=== PATIENT | female | born 1945 | race Two or more races ===

== ENCOUNTER → 2017-07-24 | Outpatient (CLI) | payer OTHER ==
[~2017-07-24] VITALS: Ht 152.4 cm; Wt 87.1 kg
[~2017-07-24] MED LIST: ALPHAGAN P5 M1; BIAXIN500 MG; CATAFLAM50 MG PO; GILTUSS LIQUID237 M1; LEVO-T25 MCG; LOPERAMIDE2 MG; MUPIROCIN22 GM TOP; SEPTRA DS PO
== END | disposition home or self-care (01) ==
LOC: PPHC 12:45
DX: B34.9 Viral infection, unspecified (principal); Z01.89 Encounter for other specified special examinations

== ENCOUNTER 2018-02-10 12:53 | Outpatient (CLI) | payer OTHER | END 2018-02-10 13:19 | disposition home or self-care (01) | LOC: SONOGRAMA 12:53 | DX: M25.561 Pain in right knee (principal) ==

== ENCOUNTER → 2018-07-01 | Outpatient (CLI) | payer OTHER | END | disposition home or self-care (01) | LOC: WOUND MED 09:21 | DX: L97.312 Non-pressure chronic ulcer of right ankle with fat layer exposed (principal); I87.2 Venous insufficiency (chronic) (peripheral) | CPT/HCPCS: A4554; A4930; A6216; G0463 ==

== ENCOUNTER → 2018-07-08 | Outpatient (CLI) | payer OTHER | END | disposition home or self-care (01) | LOC: WOUND MED 09:45 | DX: L97.312 Non-pressure chronic ulcer of right ankle with fat layer exposed (principal); I87.2 Venous insufficiency (chronic) (peripheral) | CPT/HCPCS: G0463; A4554; A4930; A6216; A6266 ==

== ENCOUNTER → 2018-07-08 | Outpatient (CLI) | payer OTHER | END | disposition home or self-care (01) | LOC: NUCLEAR 11:00 | DX: I73.9 Peripheral vascular disease, unspecified (principal) ==

== ENCOUNTER → 2018-07-15 | Outpatient (CLI) | payer OTHER | END | disposition home or self-care (01) | LOC: WOUND MED 08:19 | DX: L97.312 Non-pressure chronic ulcer of right ankle with fat layer exposed (principal); I87.2 Venous insufficiency (chronic) (peripheral) | CPT/HCPCS: G0463; A4554; A4930; A6196; A6216; A6219 ==

== ENCOUNTER → 2018-07-15 | Outpatient (CLI) | payer OTHER | END | disposition home or self-care (01) | LOC: NUCLEAR 11:00 | DX: I73.9 Peripheral vascular disease, unspecified (principal); I87.2 Venous insufficiency (chronic) (peripheral) ==

== ENCOUNTER → 2018-07-22 | Outpatient (CLI) | payer OTHER | END | disposition home or self-care (01) | LOC: WOUND MED 07:58 | DX: L97.312 Non-pressure chronic ulcer of right ankle with fat layer exposed (principal); I87.2 Venous insufficiency (chronic) (peripheral) | CPT/HCPCS: G0463; A4554; A4930; A6216; A6219 ==

== ENCOUNTER → 2018-07-29 | Outpatient (CLI) | payer OTHER | END | disposition home or self-care (01) | LOC: WOUND MED 08:22 | DX: L97.312 Non-pressure chronic ulcer of right ankle with fat layer exposed (principal); I87.2 Venous insufficiency (chronic) (peripheral) | CPT/HCPCS: 97597; A4554; A4930; A6216; A6219 ==

== ENCOUNTER → 2018-08-05 | Outpatient (CLI) | payer OTHER | END | disposition home or self-care (01) | LOC: WOUND MED 08:44 | DX: L97.312 Non-pressure chronic ulcer of right ankle with fat layer exposed (principal); I87.2 Venous insufficiency (chronic) (peripheral) | CPT/HCPCS: 97597; A4554; A4930; A6216; A6219 ==

== ENCOUNTER → 2018-08-12 | Outpatient (CLI) | payer OTHER | END | disposition home or self-care (01) | LOC: WOUND MED 09:59 | DX: L97.312 Non-pressure chronic ulcer of right ankle with fat layer exposed (principal); I87.2 Venous insufficiency (chronic) (peripheral) | CPT/HCPCS: G0463; A4554; A4930; A6216 ==

== ENCOUNTER 2019-07-17 07:26 | Outpatient (CLI) | payer OTHER | END 2019-07-17 07:39 | disposition home or self-care (01) | LOC: LAB 07:26 | DX: M17.0 Bilateral primary osteoarthritis of knee (principal); Z76.89 Persons encountering health services in other specified circumstances; M79.651 Pain in right thigh; M79.604 Pain in right leg; D64.89 Other specified anemias; E88.89 Other specified metabolic disorders; D68.8 Other specified coagulation defects; Z22.322 Carrier or suspected carrier of Methicillin resistant Staphylococcus aureus; N39.0 Urinary tract infection, site not specified ==

== ENCOUNTER → 2019-08-02 07:50 | Outpatient (CLI) | payer OTHER ==
[~2019-08-02 07:50] MED LIST changes: +ATORVASTATIN CA10 MG PO; +DORZOLAMIDE-TIM10 ML OPHT; -LEVO-T25 MCG; +LEVO-T25 MCG PO
== END | disposition home or self-care (01) ==
LOC: LAB 07:50
DX: N39.0 Urinary tract infection, site not specified (principal)

== ENCOUNTER 2019-08-06 11:46 | Inpatient (IN) | payer OTHER ==
[~2019-08-06] VITALS: Ht 172.7 cm; Wt 88.0 kg
== END 2019-08-12 10:45 | disposition home or self-care (01) | DRG 470 ==
LOC: O/R 08-09 08:44 → SURG 08-09 11:18 → O/R 08-09 11:18 → SURG 08-09 19:24
PROVIDERS: ADMIT Orthopaedic Surgery
PROC: 0SRC0J9 Replacement of Right Knee Joint with Synthetic Substitute, Cemented, Open Approach (ICD-10-PCS; principal; 2019-08-09 15:00)
DX: M17.11 Unilateral primary osteoarthritis, right knee (principal); M46.28 Osteomyelitis of vertebra, sacral and sacrococcygeal region; E03.8 Other specified hypothyroidism

== ENCOUNTER 2019-08-18 15:05 | Outpatient (CLI) | payer OTHER | END 2019-08-18 16:00 | disposition home or self-care (01) | LOC: NUCLEAR 15:05 | DX: I87.2 Venous insufficiency (chronic) (peripheral) (principal); L03.125 Acute lymphangitis of right lower limb ==

== ENCOUNTER 2019-08-18 15:08 | Outpatient (CLI) | payer OTHER | END 2019-08-18 18:00 | disposition home or self-care (01) | LOC: LAB 15:08 | DX: D64.89 Other specified anemias (principal); M06.4 Inflammatory polyarthropathy ==

== ENCOUNTER 2019-08-25 07:15 | Outpatient (CLI) | payer OTHER | END 2019-08-25 07:21 | disposition home or self-care (01) | LOC: LAB 07:15 | DX: D64.89 Other specified anemias (principal); M06.4 Inflammatory polyarthropathy ==

== ENCOUNTER → 2019-09-07 | Outpatient (CLI) | payer OTHER | END | disposition home or self-care (01) | LOC: LAB 07:04 | DX: D64.89 Other specified anemias (principal); E88.89 Other specified metabolic disorders; D68.8 Other specified coagulation defects; N39.0 Urinary tract infection, site not specified; M06.4 Inflammatory polyarthropathy ==

== ENCOUNTER 2020-09-19 08:13 | Outpatient (CLI) | payer OTHER | END 2020-09-19 08:27 | disposition home or self-care (01) | LOC: MAMO-SONO 08:13 | PROVIDERS: ATTEND Internal Medicine | DX: Z12.31 Encounter for screening mammogram for malignant neoplasm of breast (principal); N63.0 Unspecified lump in unspecified breast ==

== ENCOUNTER 2021-10-02 10:55 | Outpatient (CLI) | payer OTHER | END 2021-10-02 11:08 | disposition home or self-care (01) | LOC: MAMO-SONO 10:55 | PROVIDERS: ATTEND Obstetrics & Gynecology | DX: Z12.31 Encounter for screening mammogram for malignant neoplasm of breast (principal); N60.19 Diffuse cystic mastopathy of unspecified breast ==

== ENCOUNTER 2022-12-23 13:21 | Outpatient (CLI) | payer OTHER | END 2022-12-23 13:38 | disposition home or self-care (01) | LOC: MAMO-SONO 13:21 | DX: Z12.31 Encounter for screening mammogram for malignant neoplasm of breast (principal); Z12.39 Encounter for other screening for malignant neoplasm of breast; N63.0 Unspecified lump in unspecified breast ==

== ENCOUNTER 2023-12-29 10:00 | Outpatient (CLI) | payer OTHER | END 2023-12-29 10:10 | disposition home or self-care (01) | LOC: MAMO-SONO 10:00 | PROVIDERS: ATTEND Internal Medicine | DX: N60.11 Diffuse cystic mastopathy of right breast (principal); N60.12 Diffuse cystic mastopathy of left breast; Z12.31 Encounter for screening mammogram for malignant neoplasm of breast; Z12.39 Encounter for other screening for malignant neoplasm of breast; N63.0 Unspecified lump in unspecified breast ==